=== PATIENT | male | born 1995 | race Caucasian/White ===

== ENCOUNTER → 2020-06-13 | Emergency (ER) | payer SELFPAY ==
[~2020-06-13] VITALS: Ht 157.5 cm; Wt 59.0 kg
[~2020-06-13] MED LIST: LORazepam 2 MG/ML VIAL IM ONE
[2020-06-13 20:35] VITALS: BP 120/71
--- NOTE | 2020-06-13 20:35 | NUR ---
TO BED #3 , BROUGHT IN BY AMBULANCE WITH C/O ANXIETY ATTACK, SOB, HYPERVENTILATING, FROM URGENT CARE.
--- NOTE | 2020-06-13 20:40 | NUR ---
BROUGHT IN BY AMBULANCE WITH C/O ANXIETY ATTACK, WITH SOB, HYPERVENTILATING. PT HOOKED TO MONITORS. VS STABLE. CURRENT RR 22. MED HX ANXIETY, INSOMNIA NKA
--- NOTE | 2020-06-13 21:40 | NUR ---
Patient discharged with v/s stable. Written and verbal after care instructions given and explained. Patient verbalized understanding. Ambulatory with steady gait. All questions addressed prior to discharge. Advised to follow up with PMD.
[2020-06-13 21:41] VITALS: BP 120/71
== END | disposition home or self-care (01) ==
LOC: MED 20:33
DX: F41.9 Anxiety disorder, unspecified (principal); G47.00 Insomnia, unspecified
CPT/HCPCS: 96372; 99283; J2060

== ENCOUNTER 2020-08-02 12:59 | Emergency (ER) | payer BC ==
[~2020-08-02] VITALS: Ht 165.1 cm; Wt 63.5 kg
[2020-08-02 12:59] VITALS: BP 115/76
--- NOTE | 2020-08-02 13:02 | NUR ---
PT LEFT DID NOT WANT TO SEEK TREATMENT. PT VERBALLY AGGRESSIVE THREATENING STAFF.
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
--- NOTE | 2020-08-02 13:08 | NUR ---
Kelsy Sol (mother) [phone].
--- NOTE | 2020-08-02 13:21 | NUR ---
PT RETURNED COOPERATIVELY TO ED 6. PT WALKED IN FROM OUTSIDE AND SAT DOWN IN BED 6. PT IS CALM AND COOPERATIVE AT THIS TIME. [place] [employer] OFFICERS ALSO AT BEDSIDE. OFFICER KIET SPEAKING WITH PATIENT.
--- NOTE | 2020-08-02 13:22 | NUR ---
Patient sitting semi-fowlers with [place] [employer] officers at bedside. 5150 protocol initiated; personal belongings and clothing removed, pt placed into gown.
[2020-08-02] MEDS ORDERED: TRAM50TA1 PO (13:24)
[2020-08-02] MEDS ORDERED: ZOLP10TA1 PO (13:24)
[2020-08-02] MEDS ORDERED: PRAZ1CAP5 PO (13:24)
[2020-08-02] MEDS ORDERED: METH-1681 PO (13:24)
[2020-08-02] MEDS ORDERED: HYDR-5191 PO (13:24)
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
--- NOTE | 2020-08-02 13:59 | NUR ---
Dr. Snyder is evaluating patient at bedside.
--- NOTE | 2020-08-02 14:08 | NUR ---
Telepsychiatry consultation ordered as requested by Dr. Snyder.
--- NOTE | 2020-08-02 14:23 | NUR ---
BROTHER LORNA AT BEDSIDE.
--- NOTE | 2020-08-02 14:41 | NUR ---
Duy valencia in [facility] - 08/02/20 at 1505 by DHRUV Patient sitting upright in bed speaking with psychiatrist via TeleMed Video.
--- NOTE | 2020-08-02 15:05 | NUR ---
Patient restraints removed completely; patient is calm and cooperative sitting quietly in bed with brother at bedside.
--- NOTE | 2020-08-02 15:16 | NUR ---
Duy valencia in [facility] - 08/02/20 at 1516 by DHRUV Patient sitting upright in bed speaking with psychiatrist via TeleMed Video.
--- NOTE | 2020-08-02 15:16 | NUR ---
Dr. Cadet psychiatrist speaking with patient.
--- NOTE | 2020-08-02 15:35 | NUR ---
Patient is awake in high-fowlers acting appropriately. Pt presents calm/cooperative at this time. Respirations even/unlabored. Bed locked in lowest position, side rails x 2 for patient safety.
--- NOTE | 2020-08-02 16:15 | NUR ---
Dr. Guerrero is evaluating the patient at bedside.
[2020-08-02 16:26] VITALS: BP 118/72
== END 2020-08-02 16:26 | disposition home or self-care (01) ==
LOC: MED 12:59
DX: T39.1X2A Poisoning by 4-Aminophenol derivatives, intentional self-harm, initial encounter (principal); F41.9 Anxiety disorder, unspecified; Y92.89 Other specified places as the place of occurrence of the external cause; F19.10 Other psychoactive substance abuse, uncomplicated
CPT/HCPCS: 99283